=== PATIENT | male | born 1990 | race Caucasian/White ===

== ENCOUNTER 2020-08-03 12:20 | Emergency (ER) | payer BC ==
[~2020-08-03] VITALS: Ht 170.2 cm; Wt 63.5 kg
[2020-08-03 12:30] VITALS: BP 133/97
[2020-08-03] MEDS ORDERED: PREDNISONE 20 M20 M1 PO (13:17)
[2020-08-03] MEDS ORDERED: ZPAK PO (13:17)
== END 2020-08-03 13:31 | disposition home or self-care (01) ==
LOC: M.ERS 12:20
DX: U07.1 COVID-19 (principal); Z91.011 Allergy to milk products